=== PATIENT | male | born 1985 | race Caucasian/White ===

== ENCOUNTER → 2017-05-01 10:14 | Outpatient (CLI) | payer MEDICAID ==
[2017-05-01 10:52] LABS: BASOPHILS 0.4 % (0-2); EOSINOPHILS 3.3 % (0-7); HEMATOCRIT 45.8 % (42.0-54.0); HEMOGLOBIN 15.6 g/dL (13.5-17.5); IMMATURE GRANULOCYTES 0.3 % (0-5); LYMPHOCYTES 24.4 % (15-50); MCH 28.2 pg (26.0-34.0); MCHC 34.1 g/dL (31.0-37.0); MCV 82.7 fL (80.0-100.0); MEAN PLATELET VOLUME 11.2 fL (7.4-10.4); MONOCYTES 6.4 % (2-11); NEUTROPHILS 65.2 % (40-80); PLATELET COUNT 190 10x3/uL (130-400); RBC 5.54 10x6/uL (4.20-6.10); RDW 13.7 % (11.5-14.5); WBC 7.8 10x3/uL (4.8-10.8)
[2017-05-01 10:59] LABS: APTT 27.2 SECONDS (22.8-39.4); INR 0.99 (0.85-1.17)
[2017-05-01 11:08] LABS: % SATURATION 30 % (15-55); IRON 90 ug/dl (35-150); TOTAL IRON BIND CAPACITY 298 ug/dl (260-445); UNSAT IRON BIND CAPACITY 208 ug/dl (150-375)
[2017-05-01 11:45] LABS: ALBUMIN 3.9 g/dL (3.4-5.0); ALKALINE PHOSPHATASE 61 U/L (46-116); ALT (SGPT) 102 U/L (10-68); BILIRUBIN - DIRECT 0.17 mg/dL (0.00-0.30); BILIRUBIN - INDIRECT 0.71 mg/dL (0.00-1.00); BILIRUBIN - TOTAL 0.88 mg/dL (0.2-1.3); CALC OSMOLALITY 276 mosm/kg (275-300); CALCIUM 8.5 mg/dL (8.5-10.1); CARBON DIOXIDE 24.8 mmol/L (21.0-32.0); CHLORIDE - SERUM 104 mmol/L (98-107); CHOL - HDL RATIO 5.3 ratio (2.3-4.9); CHOLESTEROL, TOTAL 137 mg/dL (0-200); CREATININE - SERUM 1.1 mg/dL (0.6-1.3); GAMMA GT 60 U/L (5-85); GLUCOSE 112 mg/dL (74-106); HDL CHOLESTEROL 26 mg/dL (32-96); LDL CHOLESTEROL 83 mg/dL (0-100); LDL-HDL RATIO 3.2 ratio (1.5-3.5); POTASSIUM - SERUM 3.8 mmol/L (3.5-5.1); PROTEIN - SERUM 7.3 g/dL (6.4-8.2); SODIUM 139 mmol/L (136-145); TRIGLYCERIDE 140 mg/dL (30-200); UREA NITROGEN 8 mg/dL (7-18); eGFR NON AFRICAN AMERICAN 82 mL/min (90-120)
[2017-05-01 11:46] LABS: FERRITIN 1317 ng/mL (3-244)
[2017-05-02 07:23] LABS: ALPHA FETOPROTEIN -(TUMOR MRK) 3.1 ng/mL (0.0-8.3); FOLATE (FOLIC ACID) - SERUM 15.7 ng/mL (>3.0)
[2017-05-02 08:15] LABS: HEPATITIS C ANTIBODY <0.1 (0.0-0.9)
[2017-05-04 11:11] LABS: ANA REFLEX - DIRECT Negative (Negative)
[2017-05-04 13:11] LABS: MITOCHONDRIAL ANTIBODY 6.4 Units (0.0-20.0); SMOOTH MUSCLE ABS (ACTIN) 10 Units (0-19)
[2017-05-04 14:15] LABS: HAPTOGLOBIN 162 mg/dL (34-200)
== END | disposition home or self-care (01) ==
LOC: D.LAB 08:00
PROVIDERS: Internal Medicine Gastroenterology
DX: K76.0 Fatty (change of) liver, not elsewhere classified (principal); R74.8 Abnormal levels of other serum enzymes

== ENCOUNTER → 2017-07-21 09:22 | Outpatient (CLI) | payer MEDICAID ==
[2017-07-21 10:13] LABS: ALBUMIN 3.7 g/dL (3.4-5.0); BILIRUBIN - DIRECT 0.06 mg/dL (0.00-0.30); BILIRUBIN - INDIRECT 0.48 mg/dL (0.00-1.00); BILIRUBIN - TOTAL 0.54 mg/dL (0.2-1.3); PROTEIN - SERUM 7.2 g/dL (6.4-8.2)
== END | disposition home or self-care (01) ==
LOC: D.US 09:22
PROVIDERS: Internal Medicine Gastroenterology
DX: K76.0 Fatty (change of) liver, not elsewhere classified (principal); R94.5 Abnormal results of liver function studies